=== PATIENT | male | born 1960 | race Caucasian/White ===

== ENCOUNTER 2018-06-02 06:55 | Observation (INO) | payer OTHER ==
[2018-06-02] MEDS ORDERED: NS 1,000 ML IV ONE (07:00)
--- NOTE | 2018-06-02 07:15 | CPEKG ---
Test Reason : OPEN Blood Pressure : / mmHG Vent. Rate : 048 BPM Atrial Rate : 000 BPM P-R Int : 194 ms QRS Dur : 098 ms QT Int : 447 ms P-R-T Axes : -08 -22 -01 degrees QTc Int : 400 ms Sinus rhythm Atrial premature complexes Borderline left axis deviation Abnormal R-wave progression, early transition Agree with above. Confirmed by Jermaine Evans ([id number]) on 06/02/2018 7:14:55 AM Referred By: Confirmed By:Jermaine Evans
[2018-06-02 07:36] LABS: PLATELET COUNT 235 10^3/uL (150-400)
[2018-06-02 07:54] LABS: INR 0.92 (0.83-1.16); PROTIME(PATIENT) 12.6 SEC (12.0-15.0)
--- NOTE | 2018-06-02 08:04 | PDANEPAE ---
ANE History of Present Illness EP studies and ablation of atrial fibrillation. ANE Past Medical History - Cardiovascular History Hx Hypertension: No Hx Arrhythmias: Yes Hx Chest Pain: No Hx Coronary Artery / Peripheral Vascular Disease: No Hx CHF / Valvular Disease: No Hx Palpitations: Yes Cardiovascular History Comment: paroxysmal A fib, s/p ablation - Pulmonary History Hx COPD: No Hx Asthma/Reactive Airway Disease: No Hx Recent Upper Respiratory Infection: No Hx Oxygen in Use at Home: No Hx Sleep Apnea: No Pulmonary History Comment: hx of snoring - Neurologic History Hx Cerebrovascular Accident: No Hx Seizures: No Hx Dementia: No - Endocrine History Hx Diabetes: No Hypothyroid: No Hyperthyroid: No Obesity: moderate - Renal History Hx Renal Disorders: No - Liver History Hx Hepatic Disorders: No - Neurological & Psychiatric Hx Hx Neurological and Psychiatric Disorders: No - Cancer History Hx Cancer: No - Congenital Disorder History Hx Congenital Disorders: No - GI History GERD: no Hx Gastrointestinal Disorders: No - Chronic Pain History Chronic Pain: No - Surgical History Prior Surgeries: s/p ORIF ankle, hernia repair, ablation, colonoscopy ANE Review of Systems Review of Systems: - Exercise capacity METS (RN): 4 METS ANE Patient History - Allergies Allergies/Adverse Reactions: No Known Allergies Allergy (Verified 05/29/18 09:00) - Home Medications Home Medications: Cholecalciferol Vit D3 [Vitamin D3 2000 units tab (OTC)] 2,000 units PO DAILY [Last Taken 06/01/18] Herbals/Supplements -Info Only 1 ea PO DAILY 05/29/18 [Last Taken 06/01/18] Lisinopril [Zestril 2.5 mg (*)] 2.5 mg PO DAILY 05/29/18 [Last Taken 06/01/18] Metoprolol Tartrate [Lopressor 50 mg (*)] 50 mg PO BID 05/29/18 [Last Taken ] Rivaroxaban [Xarelto 10mg (*)] 20 mg PO DAILY 05/29/18 [Last Taken 05/31/18] Simvastatin [Zocor] 40 mg PO HS 05/29/18 [Last Taken 06/01/18] Prilosec PO DAILY 06/02/18 [Last Taken 06/01/18] - Anes Hx Anes Hx: no prior problems - Smoking Hx Smoking Status: Never smoked Marijuana use: No - Alcohol Use Alcohol Use: Other (2 glasses of wine/weekend) - Family Anes Hx Family Anes Hx: none ANE Labs/Vital Signs - Labs Result Diagrams: 06/02/18 07:10 06/02/18 07:10 - Vital Signs Blood Pressure: 110/61 Heart Rate: 55 O2 Sat (%): 97 Height: 177.8 cm Weight: 88.5 kg ANE Physical Exam - Pulmonary Pulmonary: clear to auscultation - Cardiovascular Cardiovascular: regular rate and rhythym - ASA Status ASA Status: II ANE Anesthesia Plan Anesthesia Plan: general endotracheal anesthesia
[2018-06-02] MEDS ORDERED: MIDAZOLAM 2 MG/2 ML VIAL IVP ONE (08:11)
[2018-06-02] MEDS ORDERED: HEPARIN 10,000 UNIT/10 ML MDV (1,000 UNIT/ML) ONE ×2 (08:14→08:24)
[2018-06-02] MEDS ORDERED: LIDOCAINE 1% 300 MG/30 ML SDV ONE (08:14)
[2018-06-02] MEDS ORDERED: BUPIVACAINE 0.75% 10 ML SDV ONE (08:15)
[2018-06-02] MEDS ORDERED: ISOPROTERENOL HCL/D5W 0.2 MG/50 ML BAG IV ONE (08:15)
[2018-06-02] MEDS ORDERED: DEXAMETHASONE 4 MG/ML VIAL ONE (08:17)
[2018-06-02] MEDS ORDERED: PROPOFOL 200 MG/20 ML VIAL ONE (08:17)
[2018-06-02] MEDS ORDERED: ROCURONIUM 50 MG/5 ML VIAL ONE ×4 (08:17→13:18)
[2018-06-02] MEDS ORDERED: MIDAZOLAM 2 MG/2 ML VIAL ONE (08:22)
[2018-06-02] MEDS ORDERED: HEPARIN/DEXTROSE 25,000 UNIT/500 ML BAG ONE (08:24)
[2018-06-02] MEDS ORDERED: IOPAMIDOL (ISOVUE-300) 100 ML BTL ONE (08:24)
--- NOTE | 2018-06-02 08:31 | PDGENHP ---
History & Physical Chief Complaint: Atrial tachycardia History of Present Illness: Increasing frequency of brief episodes of atrial tachycardia. Query SVT vs. AFL with slow 1:1 conduction. Relevant Physical Exam: General: A&0x4. Cardiac: Regular rate and rhythm, tele demonstrates NSR with PACs. Respiratory: CTA. Extremities: Normal exam, no edema, pulses 2+ Cardiorespiratory Assessment: Proceed with EPS and possible ablation in the setting of recurrent episodes of AT
[2018-06-02] MEDS ORDERED: ePHEDrine SULFATE 25 MG/5 ML SYR ONE (09:11)
[2018-06-02] MEDS ORDERED: PHENYLEPHRINE HCL 100 MCG/ML SYR ONE (09:11)
[2018-06-02] MEDS ORDERED: PHENYLEPHRINE 10 MG/ML SDV ONE (10:03)
[2018-06-02] MEDS ORDERED: ONDANSETRON 4 MG/2 ML VIAL ONE (14:21)
[2018-06-02] MEDS ORDERED: NALOXONE HCL 0.4 MG/ML INJ IVP PRN (14:35)
[2018-06-02] MEDS ORDERED: ONDANSETRON 4 MG/2 ML VIAL IVP PRN (14:35)
[2018-06-02] MEDS ORDERED: fentaNYL 100 MCG/2 ML INJ IVP PRN (14:35)
[2018-06-02] MEDS ORDERED: PROTAMINE SULFATE 50 MG/5 ML VIAL IVP ONE (14:36)
[2018-06-02] MEDS ORDERED: SUGAMMADEX SODIUM 200 MG/2 ML VIAL IVP ONE (14:46)
--- NOTE | 2018-06-02 16:18 | POSTANESTH ---
Post Anesthetic Evaluation Cardiovascular Status: Similar to Pre-Op Cond Respiratory Status: Normal, Stable Level of Consciousness/Mental Status: Can Participate in Eval Pain Control: Adequate, Prn Tx Ordered Nausea/Vomiting Control: Adequate, Prn Tx Ordered Complications Possibly Related to Anesthesia: None Noted
--- NOTE | 2018-06-02 17:29 | CPEKG ---
Test Reason : OPEN Blood Pressure : / mmHG Vent. Rate : 068 BPM Atrial Rate : 068 BPM P-R Int : 187 ms QRS Dur : 092 ms QT Int : 422 ms P-R-T Axes : -05 -25 -47 degrees QTc Int : 449 ms Sinus rhythm Borderline left axis deviation Nonspecific T abnormalities, diffuse leads. The changes in the precordial leads are new since 2017, 07:12. Consider ischemia. Confirmed by Jermaine Evans ([id number]) on 06/02/2018 5:28:19 PM Referred By: Confirmed By:Jermaine Evans
[2018-06-02] MEDS ORDERED: RIVAROXABAN 10 MG TAB PO SCH (18:30)
--- NOTE | 2018-06-02 20:55 | EPPROC ---
Electrophysiology Procedure Note: Procedures performed: 61516-61 EP evaluation with RA/RV/LA pace/record, with arrhythmia induction 20562-88 EP evaluation with RA/RV pace record, insert/reposition catheter, with arrhythmia induction 77419 Atrial fibrillation ablation 2nd arrhythmia 99724 3D mapping Intracardiac echocardiogram Transseptal puncture Fluoroscopy INDICATION: Atrial fibrillation Atrial flutter Atrial tachycardia Prior ablation at [facility] with pulmonary vein isolation using a box lesion set, mitral isthmus line, cava tricuspid isthmus line and cafe ablation PROCEDURE: The patient arrived in the Electrophysiology Laboratory in the fasting state. The right groin, left groin and right infraclavicular area were prepped and draped in the usual sterile fashion. Anesthesiologist administered general anesthesia Dr. Esau Eller All catheters were placed percutaneously using the Seldinger technique and advanced into position under fluoroscopic guidance. One #7 [place] deflectable octapolar electrode catheter was placed in the His-bundle position via the left femoral vein (2mm spacing, IVC electrode for unipolar recordings). A 20 pole catheter was placed in the coronary sinus. A Halo catheter was placed around the tricuspid annulus. Atrial flutter, cycle length 250 milliseconds was easily induced, entrainment mapping confirmed that this was cava tricuspid isthmus dependent atrial flutter. Atrial tachycardia, cycle length 235 milliseconds was induced, entrainment mapping confirmed that this was a left atrial tachycardia. There were also spontaneous episodes of atrial fibrillation. Initially, attention was directed at the cavo- tricuspid isthmus. Conduction across the isthmus was confirmed with 3D mapping. There was earliest activation near the inferior vena cava. Ablation was performed using Mobi sheath and 3.5 mm STSF catheter. Bidirectional conduction block was achieved. After this ablation, atrial flutter was no longer inducible. One #8 [place] AcuNaV ultrasound catheter was placed in the left femoral vein and advanced into the right atrium. Programmed stimulation was performed from the right atrium, left atrium (CS) and right ventricle. Intracardiac echo evaluation of the left atrium and pulmonary veins was performed. SL1 sheath was inserted into the right femoral vein and advanced into the right atrium. Transseptal puncture was performed under intracardiac ultrasound, fluoroscopic and hemodynamic guidance placing the sheath into the left atrium. [place] RF needle (C0 curve) was used. The mean left atrial pressure was 10 mmHg. Using a PentaRay catheter, detailed 3D mapping of the left atrium was performed and a high-resolution voltage map was achieved. This demonstrated that there was return of conduction in the LSPV, LIPV and RSPV. Moreover there was conduction across the roof line near the RSPV. Also there was conduction across the mitral isthmus line. The following ablation were performed: LS PV was isolated with ablation along the roof and left atrial appendage ridge. LIPV was isolated with ablation along the inferior aspect of the LIPV and the left atrial appendage ridge. RSPV was isolated with ablation along the roof and the anterior aspect and the randy. Roof line was completed with ablation extending to the RSPV Mitral isthmus line was completed with ablation near the LIPV Following this program stimulation induced atrial tachycardia, cycle length 235 milliseconds. Detailed 3D mapping and entrainment mapping confirmed that this was originating from the left atrial appendage. Ablation along the anterior aspect and base of the left atrial appendage did slow the atrial tachycardia and induced a wobble in the tachycardia cycle length but did not terminated. We elected not to isolate the left atrial appendage at this time. The patient was cardioverted. An esophageal temperature probe (12 electrode, Circa) was placed by the anesthesiologist at the beginning of the procedure. Esophageal temperature was monitored continuously and RF ablation was interrupted if there was a temperature rise >0.5 C. There was no esophageal temperature rise during the procedure. ICE imaging was consistent with pre ablation imaging; moreover it showed no pericardial effusion or LA/MARCELA thrombus at the end of the procedure. The catheters were withdrawn. Pursestring sutures were applied bilaterally in the sheaths were removed in the EP lab. Protamine was given. The patient was recovered from anesthesia. There were no complications. CONCLUSIONS: 1. Persistent atrial fibrillation, atrial flutter and left atrial tachycardia. 2. Reisolation of LSPV, LIPV, RSPV. Re-ablation to complete cavotricuspid isthmus line, mitral isthmus line and left atrial roof line. 3. Left atrial tachycardia arising from left atrial appendage. Unsuccessful ablation attempt. 4. No apparent complications. RECOMMENDATIONS: If patient has recurrent left atrial tachycardia, consider isolating left atrial appendage vs. antiarrhythmic drug therapy Patient Problems: Problems Problem Status Onset Atrial fibrillation and flutter Acute
[2018-06-02] MEDS ORDERED: ATORVASTATIN CALCIUM 20 MG TAB PO SCH (21:00)
[2018-06-02] MEDS: RIVAROXABAN 10 MG TAB PO SCH ×2 (21:19→21:20)
[2018-06-02] MEDS: METOPROLOL TARTRATE 50 MG TAB PO SCH (21:20)
[2018-06-02] MEDS: ERYTHROMYCIN 0.5% 1 GM OPHT.OINT RTEYE SCH (21:21)
[2018-06-03 05:24] LABS: PLATELET COUNT 205 10^3/uL (150-400)
--- NOTE | 2018-06-03 08:53 | ECHO ---
[email or web address] [address] [address] Main: [phone] Fax: Transthoracic Echocardiogram Name: ANGELO PAK MR#: [id number] Study Date: 06/03/2018 Study Time: 07:49 AM Date of : 1960 Age: 58 year(s) Height: 177.8 cm (70 in.) Weight: 88.45 kg (195 lb.) BSA: 2.06 m2 Gender: Male Examination: Echo Indication: F/U post EP study Image Quality: Contrast: Requested by: Tristin Whitfield BP: / Heart Rate: Rhythm: Indication: F/U post EP study Procedure Staff Bi Solutions Architect: Julianne St RDCS Reading Physician: Laurie Mustafa MD Requesting Provider: Conclusions: Normal size left ventricle. No LV hypertrophy. Normal global systolic LV function. EF is 69 %. No regional wall motion abnormality. Normal diastolic LV function. Normal size right ventricle. The left atrium is mildly to moderately dilated. Transseptal puncture noted.. Trivial to mild mitral regurgitation. No pericardial effusion. Measurements: Chambers Valvular Assessment AV/MV Valvular Assessment TV/PV Normal Normal Normal Name Value Range Name Value Range Name Value Range Ao Selene (MM): 4.0 cm (2.2 cm-3.7 AV Vmax: 1.27 m/s (1 m/s-1.7 cm) m/s) IVSd (2D): 0.9 cm (0.6 cm-1.1 AV meanP mmHg ( - ) cm) MV E Vmax: 0.82 m/s ( - ) LVDd (2D): 4.7 cm (4.2 cm-5.9 MV A Vmax: 0.35 m/s ( - ) cm) MV E/A: 2.34 ( - ) LVDs (2D): 2.5 cm (2.1 cm-4 cm) LVPWd (2D): 0.9 cm (0.6 cm-1 cm) LVEF (MOD4): 69 % (>=55 %) Continued Measurements: Chambers Valvular Assessment AV/MV Patient: ANGELO PAK Study Date: 06/03/2018 Page 1 of 2 07:49 AM Name Value Name Value LADs: 4.8 cm MV E' Septal: 0.08 m/s LADs Lon.3 cm MV E/E' Septal: 9.70 LA Area: 28.2 cm2 MV E/E' Lateral: 9.40 Additional Vessels Name Value Ao Ascendin.6 cm Findings: Left Ventricle: Normal size left ventricle. No LV hypertrophy. Normal global systolic LV function. EF is 69 %. No regional wall motion abnormality. Normal diastolic LV function. Right Ventricle: Normal size right ventricle. Normal RV function. Left Atrium: The left atrium is mildly to moderately dilated. Transseptal puncture noted.. Right Atrium: The right atrium is normal in size. Mitral Valve: The mitral valve is normal in appearance and function. Trivial to mild mitral regurgitation. Aortic Valve: The aortic valve is normal in appearance and function. The aortic valve is tri-leaflet. Trivial aortic valve regurgitation. Tricuspid Valve: The tricuspid valve is normal in appearance and function. Pulmonic Valve: The pulmonic valve is normal in appearance and function. Aorta: The aorta is normal. Pericardium: No pericardial effusion. (No Signature Object) Patient: ANGELO PAK Study Date: 06/03/2018 Page 2 of 2 07:49 AM [id number]
[2018-06-03] MEDS ORDERED: CHOLECALCIFEROL VIT D3 2,000 UNITS TAB/CAP PO SCH (09:00)
[2018-06-03] MEDS ORDERED: PANTOPRAZOLE SODIUM 40 MG TAB PO SCH (09:00)
[2018-06-03] MEDS ORDERED: LISINOPRIL 2.5 MG TAB PO SCH (09:00)
[2018-06-03] MEDS: METOPROLOL TARTRATE 50 MG TAB PO SCH (09:09)
--- NOTE | 2018-06-03 09:19 | CPEKG ---
Test Reason : OPEN Blood Pressure : / mmHG Vent. Rate : 063 BPM Atrial Rate : 063 BPM P-R Int : 191 ms QRS Dur : 101 ms QT Int : 437 ms P-R-T Axes : 002 -20 000 degrees QTc Int : 448 ms Sinus rhythm Borderline left axis deviation Diffuse ST-T wave abnormalities, less compared to June 02, 2018 Confirmed by Jermaine Evans ([id number]) on 06/03/2018 9:18:52 AM Referred By: Confirmed By:Jermaine Evans
[2018-06-03] MEDS: ERYTHROMYCIN 0.5% 1 GM OPHT.OINT RTEYE SCH (10:01)
--- NOTE | 2018-06-03 12:03 | ASMTCASEMG ---
Living Arrangements What is your living Answers: With Spouse arrangement? Who do you live with? Type Of Residence What kind of residence do Answers: House you live in? Discharge Plan Comments Coordination Status Comments Notes: Patient is a 58yo male who comes for EPS and possible ablation in the setting of recurrent episodes of AT. No therapies ordered at this time. D/C plan TBD. CM will follow. Date Signed: 06/03/2018 12:02 PM Electronically Signed By:Roya Valenzuela LCSW
[2018-06-03 12:05] VITALS: BP 104/61
--- NOTE | 2018-06-04 00:13 | GDS ---
ADMISSION DIAGNOSIS: Supraventricular tachycardia. DISCHARGE DIAGNOSIS: Atrial fibrillation, atrial flutter, atrial tachycardia. BRIEF HISTORY AND HOSPITAL COURSE: Patient is well known to Dr. Hema Jefferson. He has a prior history of atrial flutter and atrial fibrillation ablation at an outside facility. He has experienced recurrence of episodic SVT with increasing frequency over the past several months. Successful re-ablation of atrial flutter and re-isolation of 3 pulmonary veins during his procedure yesterday. EP study also demonstrated a left atrial tachycardia that was arising from the left atrial appendage with attempted ablation of this arrhythmia. Postprocedure, patient reports feeling quite well overall without any issues or concerns. He did experience onset of eye discomfort post-anesthesia and was seen by ophthalmology who started Erythromycin 0.5%. Eye discomfort has resolved this morning. His groin sites are clean and dry. Pursestring suture was removed this morning without oozing, redness, swelling, warmth, or other associated symptoms to this site. White blood cell count this morning 12.77 ( expected). Troponin 0.821 (expected). Labs are otherwise unremarkable. Echocardiogram this morning is stable. Patient is appropriate for discharge home today. PHYSICAL EXAM: VITAL SIGNS: Blood pressure 104/61, heart rate 62, SpO2 96% on room air. GENERAL: Patient is alert and oriented without any apparent distress. CARDIAC: Regular rate and rhythm. No arrhythmia noted on telemetry overnight. RESPIRATORY: Clear to auscultation without adventitious breath sounds. EXTREMITIES: Bilateral groin sites are clean and dry. Pursestring sutures removed. No issues noted at this time. No peripheral edema. MEDICATIONS: Patient will be discharged home on his usual home medications including simvastatin 40 mg at bedtime, Xarelto 20 mg daily, omeprazole 20 mg daily, metoprolol 50 mg twice daily, lisinopril 2.5 mg daily, and a new prescription of erythromycin 0.5%. DISCHARGE INSTRUCTIONS: 1. Groin precautions reviewed in detail with patient and his . 2. He will avoid a unpressurized air travel or scuba diving for the next 6 months. He will contact our clinic if he plans to engage in any of these activities within the next year. 3. He will contact our clinic with any new or concerning symptoms, including fever, chills, nausea, vomiting, hemoptysis, or any other concerning symptoms. 4. He will continue Erythromycin 0.5% per ophthalmology and will follow-up with an guidance counselor if his symptoms recur. 5. He will continue Xarelto and Omeprazole daily. /[id number]/MODL MTDD
== END 2018-06-03 12:30 | disposition home or self-care (01) ==
LOC: FCATH 06:55 → EDSTATUS 08:30 → F2N 14:35
PROVIDERS: ADMIT Registered Nurse; ATTEND Internal Medicine Cardiovascular Disease
DX: I48.1 Persistent atrial fibrillation (principal); I48.92 Unspecified atrial flutter; I47.1 Supraventricular tachycardia; Z79.01 Long term (current) use of anticoagulants; Z23 Encounter for immunization
CPT/HCPCS: 90471; 93005; 93306; 93312; 93613; 93655; 93656; 93662; C1893; G0378; C1731; C1732; C1759; C1766; G0008; J1100; J1644; J2250; J2370; J2405; J2704; J2720; Q9967